=== PATIENT | female | born 1985 | race Caucasian/White ===

== ENCOUNTER 2018-02-21 09:57 | Outpatient (REF) | payer MEDICAID, SELFPAY ==
--- NOTE | 2018-02-21 09:30 | PAPFT_PTH ---
PATIENT: NOLAN HENDERSON LOC: [facility] U#:[id number] AGE/SX: 32/F ROOM: RE02/21/[address]: JOES Morrison : 1985 BED: DIS: 02/21/2018 SPEC #: [id number] RECD: 02/21/18 17:38 STATUS: MELITONEleonora REQ #: [id number] ISIAH: 02/21/18 09:[address]: Sofi Hyman DEPT: [facility] Cytology RECD BY: Majo Manriquez ENTERED: 02/21/18 17:38 SP TYPE: PAPFT RADHA DR: Unknown,Unknown Tissues: 1 - CX/ENDOCX FOR PAP SMEARS Procedures: PAP THIN PREP/[facility] Screening HPV DNA PROBE Comments: [id number]
== END 2018-02-21 10:17 ==
LOC: LBN 09:57
PROVIDERS: Visit Provider Nurse Practitioner Family
DX: Z12.4 Encounter for screening for malignant neoplasm of cervix (principal); Z11.51 Encounter for screening for human papillomavirus (HPV)
CPT/HCPCS: 88142; 87624

== ENCOUNTER 2020-06-17 10:11 | Outpatient (REF) | payer OTHER, SELFPAY ==
--- NOTE | 2020-06-17 09:40 | PAPFT_PTH ---
PATIENT: NOLAN HENDERSON LOC: [facility] U#:[id number] AGE/SX: 35/F ROOM: RE06/17/[address]: JOSE Morrison : 1985 BED: DIS: 06/17/2020 SPEC #: [id number] RECD: 06/17/20 13:02 STATUS: EDILIA STEWART #: [id number] ISIAH: 06/17/20 09:[address]: Sofi Hyman DEPT: [facility] Cytology RECD BY: Majo Manriquez Tissues: 1 - CX/ENDOCX FOR PAP SMEARS Procedures: PAP THIN PREP/[facility] Screening HPV DNA PROBE Comments: [id number]
== END 2020-06-17 10:12 | disposition home or self-care (01) ==
LOC: LBN 10:11
PROVIDERS: Visit Provider Nurse Practitioner Family
DX: Z12.4 Encounter for screening for malignant neoplasm of cervix (principal); Z11.51 Encounter for screening for human papillomavirus (HPV)
CPT/HCPCS: 88142; 87624

== ENCOUNTER 2023-06-07 10:31 | Outpatient (REF) | payer BC, SELFPAY ==
--- NOTE | 2023-06-07 09:40 | PAPFT_PTH ---
PATIENT: NOLAN HENDERSON LOC: [facility] U#:[id number] AGE/SX: 38/F ROOM: RE06/07/[address]: Sayra Hector DO : 1985 BED: DIS: 06/07/2023 SPEC #: [id number] RECD: 06/07/23 13:05 STATUS: EDILIA REQ #: [id number] ISIAH: 06/07/23 09:[address]: Sayra Hector DEPT: [facility] Cytology RECD BY: Majo Manriquez ENTERED: 06/07/23 13:05 SP TYPE: PAPFT OTHR DR: Unknown,Unknown Tissues: 1 - CX/ENDOCX FOR PAP SMEARS Procedures: PAP THIN PREP/[facility] Screening HPV DNA PROBE Comments: [id number]
== END 2023-06-07 10:32 | disposition home or self-care (01) ==
LOC: LBN 10:31
PROVIDERS: Visit Provider Obstetrics & Gynecology
DX: Z12.4 Encounter for screening for malignant neoplasm of cervix (principal); Z11.51 Encounter for screening for human papillomavirus (HPV)
CPT/HCPCS: 88142; 87624